=== PATIENT | female | born 1990 | race Caucasian/White ===

== ENCOUNTER 2018-02-02 19:28 | Inpatient (IN) | payer BC ==
[2018-02-02] MEDS ORDERED: OXYTOCIN 30 UNITS/LR 500 ML IV (22:30)
[2018-02-02] MEDS ORDERED: CARBOPROST 250 MCG INJ IM (22:30)
[2018-02-02] MEDS ORDERED: METHYLERGONOVINE 0.2 MG INJ IM (22:30)
[2018-02-02] MEDS ORDERED: MISOPROSTOL 200 MCG TAB PR (22:30)
[2018-02-02] MEDS ORDERED: LIDOCAINE 1% (MPF) 30 ML INJ INJ (22:30)
[2018-02-02] MEDS: LACTATED RINGER'S 1,000 ML IV* (22:34)
[2018-02-02] MEDS: ACETAMINOPHEN 325 MG TAB PO (22:34)
[2018-02-02 22:44] LABS: ADD MAN DIFF? NO
[2018-02-02 22:54] LABS: BASOPHILS % 0.2 % (0.0-2.0); EOSINOPHILS % 0.3 % (0.0-7.0); HEMOGLOBIN 11.5 g/dl (12.0-16.0); LYMPHOCYTES # 2.5 10^3/ul (0.8-2.9); LYMPHOCYTES % 25.3 % (15.0-51.0); MEAN CORPUSCULAR HEMOGLOBIN 29.8 pg (29.0-33.0); MEAN CORPUSCULAR HGB CONC 32.9 g/dl (32.0-37.0); MEAN CORPUSCULAR VOLUME 90.7 fl (82.0-101.0); MEAN PLATELET VOLUME 12.4 fl (7.4-10.4); MONOCYTE # 0.6 10^3/ul (0.3-0.9); MONOCYTES % 6.3 % (0.0-11.0); NEUTROPHIL # 6.6 10^3/ul (1.6-7.5); NEUTROPHILS % 66.9 % (39.0-77.0); PLATELET COUNT 188 10^3/UL (140-415); RED BLOOD COUNT 3.86 10^6/ul (4.20-5.40); RED CELL DISTRIBUTION WIDTH 12.5 % (11.5-14.5)
[2018-02-02 22:54] LABS: WHITE BLOOD COUNT 9.9 10^3/ul (4.8-10.8)
[2018-02-02] MEDS: MISOPROSTOL 25 MCG CAPSULE VAG (23:10)
[2018-02-02 23:12] LABS: INR 0.84; PROTIME 11.6 Sec (11.9-14.9); PT RATIO 0.9
[2018-02-02 23:13] LABS: PARTIAL THROMBOPLASTIN TIME 30.2 Sec (25.0-35.0)
[2018-02-02 23:44] LABS: HEPATITIS B SURFACE ANTIGEN NEGATIVE (NEGATIVE)
[2018-02-03] MEDS: MISOPROSTOL 25 MCG CAPSULE VAG ×5 (03:29→22:30)
[2018-02-03] MEDS: LACTATED RINGER'S 1,000 ML IV* ×3 (03:30→11:52)
[2018-02-03] MEDS ORDERED: FENTAnyl 2MCG/ML-ROPIV 0.2% 100 ML (09:56)
[2018-02-03] MEDS ORDERED: ONDANSETRON 4 MG INJ IV (10:00)
[2018-02-03] MEDS ORDERED: NALOXONE (0.4 MG/ML) INJ IV (10:00)
[2018-02-03] MEDS ORDERED: KETOROLAC 30 MG INJ IV (10:00)
[2018-02-03] MEDS ORDERED: ZOLPIDEM 5 MG TAB PO (10:00)
[2018-02-03] MEDS ORDERED: DIPHENHYDRAMINE 50 MG INJ IV (10:00)
[2018-02-03] MEDS ORDERED: FENTAnyl 2MCG/ML-ROPIV 0.2% 100 ML BAG EPI (10:00)
[2018-02-03] MEDS ORDERED: HYDROmorphONE 0.5 MG/0.5 ML SYG IV ×2 (10:00)
[2018-02-03] MEDS: OXYTOCIN 30 UNITS/LR 500 ML IV ×4 (14:11→18:30)
[2018-02-03 15:38] LABS: RAPID PLASMA REAGIN NONREACTIVE (NR)
[2018-02-03] MEDS ORDERED: METHYLERGONOVINE 0.2 MG INJ IM (18:00)
[2018-02-03] MEDS ORDERED: MISOPROSTOL 200 MCG TAB PR (18:00)
[2018-02-03] MEDS ORDERED: HYDROCODONE/APAP (5/325) TAB PO (18:00)
[2018-02-03] MEDS ORDERED: OXYTOCIN 30 UNITS/LR 500 ML IV (18:00)
[2018-02-03] MEDS ORDERED: CARBOPROST 250 MCG INJ IM (18:00)
[2018-02-03] MEDS ORDERED: DIBUCAINE 1% 30 GM OINT PR (18:00)
[2018-02-03] MEDS ORDERED: ACETAMINOPHEN 325 MG TAB PO (18:00)
[2018-02-03] MEDS ORDERED: NACL 0.9% 3 ML SYG IV (18:00)
[2018-02-03] MEDS: ACETAMINOPHEN 325 MG TAB PO (19:00)
[2018-02-03] MEDS: BENZOCAINE 20% 56 ML SPRAY TOP (20:56)
[2018-02-03] MEDS: WITCH HAZEL/GLYCERIN PAD PR (20:57)
[2018-02-03] MEDS: HYDROCODONE/APAP (5/325) TAB PO (20:57)
[2018-02-04] MEDS: IBUPROFEN 600 MG TAB PO ×4 (02:31→23:12)
[2018-02-04] MEDS: LANOLIN 7 GM TUBE TOP ×2 (02:31→09:13)
[2018-02-04] MEDS: MISOPROSTOL 25 MCG CAPSULE VAG (07:39)
[2018-02-04] MEDS: ENOXAPARIN 40 MG/0.4 ML SYG SC (09:10)
[2018-02-04] MEDS: MAGNESIUM HYDROXIDE 30ML CUP PO ×2 (13:00→21:25)
[2018-02-04 17:32] LABS: ADD MAN DIFF? NO
[2018-02-04 17:48] LABS: BASOPHILS % 0.3 % (0.0-2.0); EOSINOPHILS % 0.3 % (0.0-7.0); HEMATOCRIT 28.7 % (37.0-47.0); HEMOGLOBIN 9.4 g/dl (12.0-16.0); LYMPHOCYTES # 2.4 10^3/ul (0.8-2.9); LYMPHOCYTES % 20.5 % (15.0-51.0); MEAN CORPUSCULAR HEMOGLOBIN 30.4 pg (29.0-33.0); MEAN CORPUSCULAR HGB CONC 32.8 g/dl (32.0-37.0); MEAN CORPUSCULAR VOLUME 92.9 fl (82.0-101.0); MONOCYTE # 0.6 10^3/ul (0.3-0.9); MONOCYTES % 5.2 % (0.0-11.0); NEUTROPHIL # 8.7 10^3/ul (1.6-7.5); NEUTROPHILS % 72.9 % (39.0-77.0); PLATELET COUNT 162 10^3/UL (140-415); RED BLOOD COUNT 3.09 10^6/ul (4.20-5.40); RED CELL DISTRIBUTION WIDTH 12.7 % (11.5-14.5)
[2018-02-04 17:48] LABS: WHITE BLOOD COUNT 11.9 10^3/ul (4.8-10.8)
[2018-02-04] MEDS: DOCUSATE SODIUM 100 MG CAP PO (21:25)
[2018-02-05] MEDS: IBUPROFEN 600 MG TAB PO ×2 (06:02→12:51)
[2018-02-05] MEDS: WITCH HAZEL/GLYCERIN PAD PR (09:08)
[2018-02-05] MEDS: BENZOCAINE 20% 56 ML SPRAY TOP (09:09)
[2018-02-05] MEDS: LANOLIN 7 GM TUBE TOP (09:09)
[2018-02-05] MEDS: ENOXAPARIN 40 MG/0.4 ML SYG SC (09:33)
[2018-02-05] MEDS: MAGNESIUM HYDROXIDE 30ML CUP PO (09:33)
[2018-02-05] MEDS: DOCUSATE SODIUM 100 MG CAP PO (09:33)
== END 2018-02-05 13:20 | disposition home or self-care (01) | DRG 775 ==
LOC: PP1 02-03 19:56 → L-D 19:28
PROVIDERS: Obstetrics & Gynecology
PROC: 10E0XZZ Delivery of Products of Conception, External Approach (ICD-10-PCS; principal; 2018-02-03)
PROC: 0DQR0ZZ Repair Anal Sphincter, Open Approach (ICD-10-PCS; 2018-02-03)
DX: O48.0 Post-term pregnancy (principal); O70.20 Third degree perineal laceration during delivery, unspecified; O99.12 Other diseases of the blood and blood-forming organs and certain disorders involving the immune mechanism complicating childbirth; D68.59 Other primary thrombophilia; Z37.0 Single live birth; Z3A.40 40 weeks gestation of pregnancy; O36.63X0 Maternal care for excessive fetal growth, third trimester, not applicable or unspecified; K59.00 Constipation, unspecified; O99.63 Diseases of the digestive system complicating the puerperium
CPT/HCPCS: 62319; 85025; 85610; 85730; 86592; 86850; 86900; 86901; 87340; 99464